=== PATIENT | female | born 1960 | race American Indian/Alaskan Native ===

== ENCOUNTER 2017-04-10 10:46 | Emergency (ER) | payer MEDICAID ==
[2017-04-10] MEDS ORDERED: NACL 0.9% 500 ML 500 ML IV ONE (11:28)
[2017-04-10] MEDS ORDERED: TYLENOL PO ONE (11:29)
[2017-04-10 12:09] LABS: Basophils % (Auto) 0.3 % (0.0-1.8); Hemoglobin 13.5 gm/dl (10.1-14.3); Lymphocytes # (Auto) 0.9 K/mm3 (1.2-5.4); Lymphocytes % (Auto) 12.9 % (13.4-35.0); Mean Corpuscular HGB Conc 33 % (30-34); Mean Corpuscular Hemoglobin 27 pg (28-32); Mean Corpuscular Volume 83 fl (79-97); Monocytes # (Auto) 0.9 K/mm3 (0.0-0.8); Monocytes % (Auto) 13.2 % (0.0-7.3); Platelet Count 182 K/mm3 (140-440); Red Blood Count 4.94 M/mm3 (3.65-5.03); Red Cell Distribution Width 14.4 % (13.2-15.2)
[2017-04-10 12:18] LABS: Alanine Aminotransferase 23 units/L (7-56); BUN/Creatinine Ratio 8; Blood Urea Nitrogen 7 mg/dL (7-17); Calcium 8.7 mg/dL (8.4-10.2); Hemolysis Index 0
[2017-04-10 12:24] LABS: INR 0.98 (0.87-1.13)
--- NOTE | 2017-04-10 13:08 | XRay Report ---
Chest 2 views: Compared to 03/30/16 . History: Possible sepsis. Findings: Borderline cardiomegaly. Trachea is midline. Pleural diaphragmatic adhesions left lung. No acute consolidation. Impression: No acute cardiopulmonary findings.
[2017-04-10] MEDS ORDERED: TORADOL IV ONE (13:22)
[2017-04-10] MEDS ORDERED: NACL 0.9% 1000 ML 1,000 ML IV ONE (13:22)
[2017-04-10] MEDS ORDERED: PROVENTIL IH ONE ×2 (13:22→15:39)
[2017-04-10] MEDS ORDERED: K-DUR PO ONE ×2 (13:23→15:37)
--- NOTE | 2017-04-10 13:24 | Emergency Department Report ---
ED General Adult HPI - General Chief complaint: Chest Pain Stated complaint: CP/SOB Time Seen by Provider: 04/10/17 12:52 Source: patient, RN notes reviewed, old records reviewed Mode of arrival: Ambulatory Limitations: No Limitations - History of Present Illness Initial comments: This is a 56-year-old female, previously evaluated by me in 2016, past medical history includes hypertension, GERD, diabetes, high cholesterol, her primary emergency management director is Dr. Sousa. Patient had a cardiac catheterization performed and September 2014, it demonstrated patent stents noted in the mid left anterior descending arterial segments, and otherwise "mild nonobstructive luminal irregularities noted in the rest of the coronary segments." Patient presents to the ER with a complaint today of coughing, mucus production, shortness of breath, chest tightness with coughing. Her symptoms have been present for 2 days. She only has chest tightness when coughing, and it does not radiate to the back , arms and neck. There is no cocaine use, there are no pulmonary embolus or DVT risk factors. Positive fevers at home. -: Gradual Location: chest Radiation: non-radiation Severity scale (0 -10): 2 Consistency: intermittent Improves with: rest Worsens with: movement, other (coughing) Associated Symptoms: chest pain, cough, fever/chills, malaise, shortness of breath, weakness. denies: loss of appetite, nausea/vomiting, rash, seizure, syncope - Related Data Home Medications Medication Instructions Recorded Confirmed Last Taken Aspirin [Aspirin BABY CHEW TAB] 81 mg PO DAILY 10/02/14 10/02/14 09/30/14 Citalopram Hydrobromide [celeXA] 20 mg PO DAILY 10/02/14 10/02/14 09/18/14 Esomeprazole Magnesium [NexIUM] 40 mg PO QDAY 10/02/14 10/02/14 09/18/14 Hydrochlorothiazide [HCTZ] 25 mg PO QDAY 10/02/14 10/02/14 10/01/14 Insulin Glargine [Lantus VIAL] 5 unit SQ DAILY 10/02/14 10/02/14 09/30/14 Lisinopril [Zestril TAB] 20 mg PO QDAY 10/02/14 10/02/14 10/01/14 Metformin HCl [Glucophage] 1,000 mg PO TID 10/02/14 10/02/14 09/30/14 Metoprolol [Lopressor TAB] 25 mg PO BID 10/02/14 10/02/14 10/01/14 Rosuvastatin Calcium [Crestor] 40 mg PO QHS 10/02/14 10/02/14 10/01/14 Trazodone HCl [traZODone] 50 mg PO DAILY 10/02/14 10/02/14 09/18/14 Previous Rx's Medication Instructions Recorded Last Taken Type Albuterol Sulfate [Proair 90 mcg IH Q4HR PRN #2 aer.pow.ba 03/30/16 Unknown Rx Respiclick] Benzonatate [Tessalon Perles] 100 mg PO Q8HR PRN #30 capsule 03/30/16 Unknown Rx Ketorolac [Toradol] 10 mg PO Q6H PRN #20 tablet 03/30/16 Unknown Rx Acetaminophen [Tylenol Arthritis] 650 mg PO Q6HR PRN #30 tablet.er 04/10/17 Unknown Rx Albuterol Sulfate [Proair 90 mcg IH Q4HR PRN #2 aer.pow.ba 04/10/17 Unknown Rx Respiclick] Azithromycin 250 mg PO QDAY #6 tablet 04/10/17 Unknown Rx Benzonatate [Tessalon Perles] 100 mg PO Q8HR PRN #30 capsule 04/10/17 Unknown Rx Fluticasone [Flonase] 1 spray NS QDAY #1 bottle 04/10/17 Unknown Rx Magnesium Oxide 400 mg PO QDAY #7 tablet 04/10/17 Unknown Rx Potassium Chloride [Klor-Con] 20 meq PO BID #14 packet 04/10/17 Unknown Rx Allergies Allergy/AdvReac Type Severity Reaction Status Date / Time No Known Allergies Allergy Verified 10/02/14 08:13 ED Review of Systems ROS: Stated complaint: CP/SOB Other details as noted in HPI Constitutional: fever, malaise Eyes: denies: vision change ENT: congestion. denies: epistaxis Respiratory: cough, wheezing Cardiovascular: denies: syncope Gastrointestinal: denies: vomiting Genitourinary: denies: dysuria Musculoskeletal: arthralgia Skin: denies: lesions Neurological: weakness ED Past Medical Hx - Past Medical History Previous Medical History?: Yes Hx Hypertension: Yes (2002) Hx Heart Attack/AMI: No Hx Congestive Heart Failure: No Hx Diabetes: Yes (IDDM) Hx GERD: Yes Hx HIV: No - Surgical History Past Surgical History?: Yes Hx Coronary Stent: Yes (x1) Hx Cholecystectomy: Yes (1989) Hx Appendectomy: Yes (1975) - Social History Smoking Status: Never Smoker Substance Use Type: None - Medications Home Medications: Home Medications Medication Instructions Recorded Confirmed Last Taken Type Aspirin [Aspirin BABY CHEW TAB] 81 mg PO DAILY 10/02/14 10/02/14 09/30/14 History Citalopram Hydrobromide [celeXA] 20 mg PO DAILY 10/02/14 10/02/14 09/18/14 History Esomeprazole Magnesium [NexIUM] 40 mg PO QDAY 10/02/14 10/02/14 09/18/14 History Hydrochlorothiazide [HCTZ] 25 mg PO QDAY 10/02/14 10/02/14 10/01/14 History Insulin Glargine [Lantus VIAL] 5 unit SQ DAILY 10/02/14 10/02/14 09/30/14 History Lisinopril [Zestril TAB] 20 mg PO QDAY 10/02/14 10/02/14 10/01/14 History Metformin HCl [Glucophage] 1,000 mg PO TID 10/02/14 10/02/14 09/30/14 History Metoprolol [Lopressor TAB] 25 mg PO BID 10/02/14 10/02/14 10/01/14 History Rosuvastatin Calcium [Crestor] 40 mg PO QHS 10/02/14 10/02/14 10/01/14 History Trazodone HCl [traZODone] 50 mg PO DAILY 10/02/14 10/02/14 09/18/14 History Albuterol Sulfate [Proair 90 mcg IH Q4HR PRN #2 aer.pow.ba 03/30/16 Unknown Rx Respiclick] Benzonatate [Tessalon Perles] 100 mg PO Q8HR PRN #30 capsule 03/30/16 Unknown Rx Ketorolac [Toradol] 10 mg PO Q6H PRN #20 tablet 03/30/16 Unknown Rx Acetaminophen [Tylenol Arthritis] 650 mg PO Q6HR PRN #30 tablet.er 04/10/17 Unknown Rx Albuterol Sulfate [Proair 90 mcg IH Q4HR PRN #2 aer.pow.ba 04/10/17 Unknown Rx Respiclick] Azithromycin 250 mg PO QDAY #6 tablet 04/10/17 Unknown Rx Benzonatate [Tessalon Perles] 100 mg PO Q8HR PRN #30 capsule 04/10/17 Unknown Rx Fluticasone [Flonase] 1 spray NS QDAY #1 bottle 04/10/17 Unknown Rx Magnesium Oxide 400 mg PO QDAY #7 tablet 04/10/17 Unknown Rx Potassium Chloride [Klor-Con] 20 meq PO BID #14 packet 04/10/17 Unknown Rx ED Physical Exam - General Limitations: No Limitations General appearance: alert, in no apparent distress - Head Head exam: Present: atraumatic, normocephalic - Eye Eye exam: Present: normal appearance, EOMI. Absent: nystagmus - ENT ENT exam: Present: normal exam, normal orophraynx, mucous membranes moist, normal external ear exam - Neck Neck exam: Present: normal inspection, full ROM - Respiratory Respiratory exam: Present: normal lung sounds bilaterally. Absent: respiratory distress, wheezes, rales, rhonchi, stridor, chest wall tenderness, accessory muscle use, decreased breath sounds, prolonged expiratory - Cardiovascular Cardiovascular Exam: Present: normal rhythm, tachycardia, normal heart sounds. Absent: systolic murmur, diastolic murmur, rubs, gallop - GI/Abdominal GI/Abdominal exam: Present: soft, normal bowel sounds. Absent: distended, tenderness, guarding, rebound, rigid, pulsatile mass - Extremities Exam Extremities exam: Present: normal inspection, full ROM, normal capillary refill. Absent: pedal edema, joint swelling, calf tenderness - Back Exam Back exam: Present: normal inspection, full ROM. Absent: tenderness, CVA tenderness (R), paraspinal tenderness, vertebral tenderness - Neurological Exam Neurological exam: Present: alert, oriented X3, CN II-XII intact, normal gait, other (Extraocular movements intact. Tongue midline. No facial droop. Facial sensation intact to light touch in the V1, V2, V3 distribution bilaterally. 5 and 5 strength in 4 extremities.. Sensation is intact to light touch in 4 extremities.). Absent: motor sensory deficit - Psychiatric Psychiatric exam: Present: normal affect, normal mood - Skin Skin exam: Present: warm, dry, intact, normal color. Absent: rash ED Course Vital Signs 04/10/17 04/10/17 04/10/17 11:25 13:13 14:49 Temperature 101.4 F H 100.3 F H 99.7 F H Pulse Rate 101 H 100 H 87 Respiratory 20 22 15 Rate Blood Pressure 148/71 Blood Pressure 134/48 142/78 [Left] O2 Sat by Pulse 97 100 93 Oximetry ED Medical Decision Making - Lab Data Result diagrams: 04/10/17 11:38 04/10/17 11:38 Vital Signs 04/10/17 04/10/17 04/10/17 11:25 13:13 14:49 Temperature 101.4 F H 100.3 F H 99.7 F H Pulse Rate 101 H 100 H 87 Respiratory 20 22 15 Rate Blood Pressure 148/71 Blood Pressure 134/48 142/78 [Left] O2 Sat by Pulse 97 100 93 Oximetry Lab Results 04/10/17 04/10/17 04/10/17 Range/Units 11:38 11:38 11:38 WBC 6.8 (4.5-11.0) K/mm3 RBC 4.94 (3.65-5.03) M/mm3 Hgb 13.5 (10.1-14.3) gm/dl Hct 41.0 (30.3-42.9) % MCV 83 (79-97) fl MCH 27 L (28-32) pg MCHC 33 (30-34) % RDW 14.4 (13.2-15.2) % Plt Count 182 (140-440) K/mm3 Lymph % (Auto) 12.9 L (13.4-35.0) % [place] % (Auto) 13.2 H (0.0-7.3) % Eos % (Auto) 0.0 (0.0-4.3) % Baso % (Auto) 0.3 (0.0-1.8) % Lymph # 0.9 L (1.2-5.4) K/mm3 [place] # 0.9 H (0.0-0.8) K/mm3 Eos # 0.0 (0.0-0.4) K/mm3 Baso # 0.0 (0.0-0.1) K/mm3 Seg Neutrophils % 73.6 H (40.0-70.0) % Seg Neutrophils # 5.0 (1.8-7.7) K/mm3 PT 13.5 (12.2-14.9) Sec. INR 0.98 (0.87-1.13) VBG pH (7.320-7.420) Sodium 140 (137-145) mmol/L Potassium 3.1 L (3.6-5.0) mmol/L Chloride 93.7 L (98-107) mmol/L Carbon Dioxide 28 (22-30) mmol/L Anion Gap 21 mmol/L BUN 7 (7-17) mg/dL Creatinine 0.9 (0.7-1.2) mg/dL Estimated GFR > 60 ml/min BUN/Creatinine Ratio 8 % Glucose 234 H (65-100) mg/dL Lactic Acid (0.7-2.0) mmol/L Calcium 8.7 (8.4-10.2) mg/dL Magnesium (1.7-2.3) mg/dL Total Bilirubin 0.40 (0.1-1.2) mg/dL AST 21 (5-40) units/L ALT 23 (7-56) units/L Alkaline Phosphatase 132 H (35-129) units/L Troponin T (0.00-0.029) ng/mL Total Protein 7.6 (6.3-8.2) g/dL Albumin 4.0 (3.9-5) g/dL Albumin/Globulin Ratio 1.1 % 04/10/17 04/10/17 04/10/17 Range/Units 11:38 11:38 11:44 WBC (4.5-11.0) K/mm3 RBC (3.65-5.03) M/mm3 Hgb (10.1-14.3) gm/dl Hct (30.3-42.9) % MCV (79-97) fl MCH (28-32) pg MCHC (30-34) % RDW (13.2-15.2) % Plt Count (140-440) K/mm3 Lymph % (Auto) (13.4-35.0) % [place] % (Auto) (0.0-7.3) % Eos % (Auto) (0.0-4.3) % Baso % (Auto) (0.0-1.8) % Lymph # (1.2-5.4) K/mm3 [place] # (0.0-0.8) K/mm3 Eos # (0.0-0.4) K/mm3 Baso # (0.0-0.1) K/mm3 Seg Neutrophils % (40.0-70.0) % Seg Neutrophils # (1.8-7.7) K/mm3 PT (12.2-14.9) Sec. INR (0.87-1.13) VBG pH 7.383 (7.320-7.420) Sodium (137-145) mmol/L Potassium (3.6-5.0) mmol/L Chloride (98-107) mmol/L Carbon Dioxide (22-30) mmol/L Anion Gap mmol/L BUN (7-17) mg/dL Creatinine (0.7-1.2) mg/dL Estimated GFR ml/min BUN/Creatinine Ratio % Glucose (65-100) mg/dL Lactic Acid 4.10 H* (0.7-2.0) mmol/L Calcium (8.4-10.2) mg/dL Magnesium (1.7-2.3) mg/dL Total Bilirubin (0.1-1.2) mg/dL AST (5-40) units/L ALT (7-56) units/L Alkaline Phosphatase (35-129) units/L Troponin T < 0.010 (0.00-0.029) ng/mL Total Protein (6.3-8.2) g/dL Albumin (3.9-5) g/dL Albumin/Globulin Ratio % 04/10/17 04/10/17 04/10/17 Range/Units 13:36 13:36 13:36 WBC (4.5-11.0) K/mm3 RBC (3.65-5.03) M/mm3 Hgb (10.1-14.3) gm/dl Hct (30.3-42.9) % MCV (79-97) fl MCH (28-32) pg MCHC (30-34) % RDW (13.2-15.2) % Plt Count (140-440) K/mm3 Lymph % (Auto) (13.4-35.0) % [place] % (Auto) (0.0-7.3) % Eos % (Auto) (0.0-4.3) % Baso % (Auto) (0.0-1.8) % Lymph # (1.2-5.4) K/mm3 [place] # (0.0-0.8) K/mm3 Eos # (0.0-0.4) K/mm3 Baso # (0.0-0.1) K/mm3 Seg Neutrophils % (40.0-70.0) % Seg Neutrophils # (1.8-7.7) K/mm3 PT (12.2-14.9) Sec. INR (0.87-1.13) VBG pH (7.320-7.420) Sodium (137-145) mmol/L Potassium (3.6-5.0) mmol/L Chloride (98-107) mmol/L Carbon Dioxide (22-30) mmol/L Anion Gap mmol/L BUN (7-17) mg/dL Creatinine (0.7-1.2) mg/dL Estimated GFR ml/min BUN/Creatinine Ratio % Glucose (65-100) mg/dL Lactic Acid 2.00 (0.7-2.0) mmol/L Calcium (8.4-10.2) mg/dL Magnesium 1.50 L (1.7-2.3) mg/dL Total Bilirubin (0.1-1.2) mg/dL AST (5-40) units/L ALT (7-56) units/L Alkaline Phosphatase (35-129) units/L Troponin T < 0.010 (0.00-0.029) ng/mL Total Protein (6.3-8.2) g/dL Albumin (3.9-5) g/dL Albumin/Globulin Ratio % - EKG Data -: EKG Interpreted by Sc - EKG Data 04/10/17 15:10 EKG #1 demonstrates sinus tachycardia, borderline left axis deviation, QTC within normal limits, motion, more likely consistent with STEMI. Unchanged from prior from March 2016. EKG #2 appears to be unchanged. - Radiology Data Radiology results: report reviewed, image reviewed X-ray of the chest, interpreted by myself and radiology: No acute disease or pathology - Medical Decision Making Differential diagnosis, including but not limited to: Myocarditis, pericarditis , pneumonia, bronchitis, viral syndrome Assessment and plan: 56-year-old female with cough, mucus production, fever, chest wall pain with coughing, febrile in the ER, most likely viral syndrome or bronchitis. Initially febrile, given antipyretic medication, fluids, albuterol , felt much improved. Doubt acute coronary syndrome, troponin negative 2, EKG unchanged 2, catheterization report from 2014 is reviewed and appreciated, patient at this point in time low risk by IPNO score, low risk by heart score. Low risk by well's criteria, does not have pulmonary embolus or DVT risk factors. In addition, I evaluated the patient for a very similar complaint at the end of 2016. Incidentally found to be hypokalemic and hypomagnesemic, patient will be discharged with albuterol, cough medication, potassium supplementation, magnesium supplementation, she'll be treated empirically for early community-acquired pneumonia versus bronchitis. Not wheezing at this time , I don't feel the patient requires steroids. Critical care attestation.: If time is entered above; I have spent that time in minutes in the direct care of this critically ill patient, excluding procedure time. ED Disposition Clinical Impression: Bronchitis Disposition: [id number] TO HOME OR SELFCARE Is pt being admited?: No Does the pt Need Aspirin: No Condition: Stable Instructions: Acute Bronchitis (ED) Additional Instructions: Take the cough medication, breathing medication, antibiotics as directed. Take the potassium and magnesium supplementation as directed. Symptoms likely, from bronchitis, symptoms will likely last for the next few weeks. Return to the ER right away with new pain, worsened pain, migration of pain, confusion, intractable nausea or vomiting, inability to tolerate liquid feeds, projectile vomiting, change in mental status, new, worsening or different symptoms. Follow-up with her primary care doctor within the next 5-7 days for a recheck. Prescriptions: Acetaminophen [Tylenol Arthritis] 650 mg PO Q6HR PRN #30 tablet.er PRN Reason: Pain Albuterol Sulfate [Proair Respiclick] 90 mcg IH Q4HR PRN #2 aer.pow.ba PRN Reason: Wheezing Azithromycin 250 mg PO QDAY #6 tablet Benzonatate [Tessalon Perles] 100 mg PO Q8HR PRN #30 capsule PRN Reason: Cough Fluticasone [Flonase] 1 spray NS QDAY #1 bottle Magnesium Oxide 400 mg PO QDAY #7 tablet Potassium Chloride [Klor-Con] 20 meq PO BID #14 packet Referrals: PRIMARY CARE, [Primary Care Provider] - 3-5 Days BELEN ULLOA MD [Staff Physician] - 3-5 Days SASHA VERGARA MD [Staff Physician] - 3-5 Days
[2017-04-10] MEDS ORDERED: MAG-OX PO STA (13:30)
[2017-04-10] MEDS ORDERED: TORADOL ONE (15:37)
[2017-04-10] MEDS: KCL 10MEQ/100ML 10 MEQ/100 ML BAG IV SCH ×2 (16:05→19:04)
[2017-04-10] MEDS ORDERED: NACL 0.9% 1000 ML 1,000 ML ONE (17:08)
[2017-04-10 19:43] VITALS: BP 146/70
== END 2017-04-10 19:45 | disposition home or self-care (01) ==
LOC: ED 10:46
DX: J40 Bronchitis, not specified as acute or chronic (principal); I10 Essential (primary) hypertension; K21.9 Gastro-esophageal reflux disease without esophagitis
CPT/HCPCS: 36415; 71046; 80053; 82140; 82805; 83735; 84484; 85025; 85610; 93005; 93010; 94640; 96361; 96374; 99284; J1885; J3480; J7030

== ENCOUNTER 2017-12-25 06:23 | Inpatient (IN) | payer MEDICAID ==
[2017-12-25 07:28] LABS: Basophils % (Auto) 0.4 % (0.0-1.8); Eosinophils # (Auto) 0.2 K/mm3 (0.0-0.4); Eosinophils % (Auto) 3.4 % (0.0-4.3); Hematocrit 40.1 % (30.3-42.9); Hemoglobin 13.3 gm/dl (10.1-14.3); Lymphocytes # (Auto) 1.8 K/mm3 (1.2-5.4); Lymphocytes % (Auto) 37.2 % (13.4-35.0); Mean Corpuscular HGB Conc 33 % (30-34); Mean Corpuscular Hemoglobin 28 pg (28-32); Mean Corpuscular Volume 84 fl (79-97); Monocytes # (Auto) 0.5 K/mm3 (0.0-0.8); Monocytes % (Auto) 9.4 % (0.0-7.3); Platelet Count 247 K/mm3 (140-440); Red Blood Count 4.75 M/mm3 (3.65-5.03)
[2017-12-25 07:48] LABS: BUN/Creatinine Ratio 14; Blood Urea Nitrogen 11 mg/dL (7-17); Hemolysis Index 6
--- NOTE | 2017-12-25 07:49 | Emergency Department Report ---
- General Chief complaint: Weakness Stated complaint: WEAKNESS Time Seen by Provider: 12/25/17 07:49 Source: patient Mode of arrival: Ambulatory Limitations: No Limitations - History of Present Illness Initial comments: Patient complaining of generalized body weakness and chest pain radiated into her left upper extremity. She said her last stress test was more than 8 months ago. She also has a stent placed in the past. Patient denies any abdominal pain, shortness of breath, nausea or vomiting. Patient also complains of unsteady gait was started recently. However she denies any history of syncope or falling. MD Complaint: generalized weakness -: Gradual Location: generalized Severity scale (0 -10): 0 Improves with: none Worsens with: none Associated Symptoms: denies other symptoms - Related Data Home Medications Medication Instructions Recorded Confirmed Last Taken Aspirin [Aspirin BABY CHEW TAB] 81 mg PO DAILY 10/02/14 10/02/14 09/30/14 Citalopram Hydrobromide [celeXA] 20 mg PO DAILY 10/02/14 10/02/14 09/18/14 Esomeprazole Magnesium [NexIUM] 40 mg PO QDAY 10/02/14 10/02/14 09/18/14 Insulin Glargine [Lantus VIAL] 5 unit SQ DAILY 10/02/14 10/02/14 09/30/14 Lisinopril [Zestril TAB] 20 mg PO QDAY 10/02/14 10/02/14 10/01/14 Metformin HCl [Glucophage] 1,000 mg PO TID 10/02/14 10/02/14 09/30/14 Metoprolol [Lopressor TAB] 25 mg PO BID 10/02/14 10/02/14 10/01/14 Rosuvastatin Calcium [Crestor] 40 mg PO QHS 10/02/14 10/02/14 10/01/14 Trazodone HCl [traZODone] 50 mg PO DAILY 10/02/14 10/02/14 09/18/14 hydroCHLOROthiazide [HCTZ] 25 mg PO QDAY 10/02/14 10/02/14 10/01/14 Previous Rx's Medication Instructions Recorded Last Taken Type Albuterol Sulfate [Proair 90 mcg IH Q4HR PRN #2 aer.pow.ba 03/30/16 Unknown Rx Respiclick] Benzonatate [Tessalon Perles] 100 mg PO Q8HR PRN #30 capsule 03/30/16 Unknown Rx Ketorolac [Toradol] 10 mg PO Q6H PRN #20 tablet 03/30/16 Unknown Rx Acetaminophen [Tylenol Arthritis] 650 mg PO Q6HR PRN #30 tablet.er 04/10/17 Unknown Rx Albuterol Sulfate [Proair 90 mcg IH Q4HR PRN #2 aer.pow.ba 04/10/17 Unknown Rx Respiclick] Azithromycin 250 mg PO QDAY #6 tablet 04/10/17 Unknown Rx Benzonatate [Tessalon Perles] 100 mg PO Q8HR PRN #30 capsule 04/10/17 Unknown Rx Fluticasone [Flonase] 1 spray NS QDAY #1 bottle 04/10/17 Unknown Rx Magnesium Oxide 400 mg PO QDAY #7 tablet 04/10/17 Unknown Rx Potassium Chloride [Klor-Con] 20 meq PO BID #14 packet 04/10/17 Unknown Rx Allergies Allergy/AdvReac Type Severity Reaction Status Date / Time No Known Allergies Allergy Verified 10/02/14 08:13 ED Review of Systems ROS: Stated complaint: WEAKNESS Other details as noted in HPI Comment: All other systems reviewed and negative Constitutional: denies: chills, fever Eyes: denies: eye pain ENT: denies: ear pain Respiratory: denies: cough, shortness of breath Cardiovascular: chest pain. denies: palpitations, dyspnea on exertion Endocrine: no symptoms reported Gastrointestinal: denies: abdominal pain, nausea, vomiting, diarrhea, constipation Genitourinary: denies: urgency, dysuria Musculoskeletal: denies: back pain Skin: denies: rash, lesions, change in color Neurological: weakness, abnormal gait. denies: headache, numbness, paresthesias Psychiatric: denies: anxiety, depression Hematological/Lymphatic: denies: easy bleeding, easy bruising ED Past Medical Hx - Past Medical History Previous Medical History?: Yes Hx Hypertension: Yes (2002) Hx Heart Attack/AMI: No Hx Congestive Heart Failure: No Hx Diabetes: Yes (IDDM) Hx GERD: Yes Hx HIV: No - Surgical History Hx Coronary Stent: Yes (x1) Hx Cholecystectomy: Yes (1989) Hx Appendectomy: Yes (1975) - Social History Smoking Status: Never Smoker Substance Use Type: None - Medications Home Medications: Home Medications Medication Instructions Recorded Confirmed Last Taken Type Aspirin [Aspirin BABY CHEW TAB] 81 mg PO DAILY 10/02/14 10/02/14 09/30/14 History Citalopram Hydrobromide [celeXA] 20 mg PO DAILY 10/02/14 10/02/14 09/18/14 History Esomeprazole Magnesium [NexIUM] 40 mg PO QDAY 10/02/14 10/02/14 09/18/14 History Insulin Glargine [Lantus VIAL] 5 unit SQ DAILY 10/02/14 10/02/14 09/30/14 History Lisinopril [Zestril TAB] 20 mg PO QDAY 10/02/14 10/02/14 10/01/14 History Metformin HCl [Glucophage] 1,000 mg PO TID 10/02/14 10/02/14 09/30/14 History Metoprolol [Lopressor TAB] 25 mg PO BID 10/02/14 10/02/14 10/01/14 History Rosuvastatin Calcium [Crestor] 40 mg PO QHS 10/02/14 10/02/14 10/01/14 History Trazodone HCl [traZODone] 50 mg PO DAILY 10/02/14 10/02/14 09/18/14 History hydroCHLOROthiazide [HCTZ] 25 mg PO QDAY 10/02/14 10/02/14 10/01/14 History Albuterol Sulfate [Proair 90 mcg IH Q4HR PRN #2 aer.pow.ba 03/30/16 Unknown Rx Respiclick] Benzonatate [Tessalon Perles] 100 mg PO Q8HR PRN #30 capsule 03/30/16 Unknown Rx Ketorolac [Toradol] 10 mg PO Q6H PRN #20 tablet 03/30/16 Unknown Rx Acetaminophen [Tylenol Arthritis] 650 mg PO Q6HR PRN #30 tablet.er 04/10/17 Unknown Rx Albuterol Sulfate [Proair 90 mcg IH Q4HR PRN #2 aer.pow.ba 04/10/17 Unknown Rx Respiclick] Azithromycin 250 mg PO QDAY #6 tablet 04/10/17 Unknown Rx Benzonatate [Tessalon Perles] 100 mg PO Q8HR PRN #30 capsule 04/10/17 Unknown Rx Fluticasone [Flonase] 1 spray NS QDAY #1 bottle 04/10/17 Unknown Rx Magnesium Oxide 400 mg PO QDAY #7 tablet 04/10/17 Unknown Rx Potassium Chloride [Klor-Con] 20 meq PO BID #14 packet 04/10/17 Unknown Rx ED Physical Exam - General Limitations: No Limitations General appearance: alert, in no apparent distress - Head Head exam: Present: atraumatic, normocephalic, normal inspection - Eye Eye exam: Present: normal appearance, PERRL, EOMI Pupils: Present: normal accommodation - ENT ENT exam: Present: normal exam, normal orophraynx, mucous membranes moist - Neck Neck exam: Present: normal inspection, full ROM. Absent: tenderness - Respiratory Respiratory exam: Present: normal lung sounds bilaterally. Absent: respiratory distress, wheezes, rales, rhonchi, stridor - Cardiovascular Cardiovascular Exam: Present: regular rate, normal rhythm, normal heart sounds - GI/Abdominal GI/Abdominal exam: Present: soft, normal bowel sounds. Absent: distended, tenderness, guarding, rebound, rigid - Extremities Exam Extremities exam: Present: normal inspection, full ROM, normal capillary refill. Absent: tenderness, pedal edema, joint swelling - Back Exam Back exam: Present: normal inspection, full ROM. Absent: tenderness - Neurological Exam Neurological exam: Present: alert, oriented X3, CN II-XII intact, abnormal gait , reflexes normal. Absent: motor sensory deficit - Psychiatric Psychiatric exam: Present: normal affect, normal mood - Skin Skin exam: Present: warm, dry, intact, normal color. Absent: rash - Assessment Assessment Interval: Baseline - Level of Consciousness 1a. Level of Consciousness: alert/keenly responsive - LOC Questions 1b. LOC Questions: answers both correctly - LOC Command 1c. LOC Commands: performs tasks correctly - Best Gaze 2. Best Gaze: normal - Visual 3. Visual: no visual loss - Facial Palsy 4. Facial Palsy: normal symmetrical movement - Motor Arm 5b. Motor Arm Right: no drift 5a. Motor Arm Left: no drift - Motor Leg 6a. Motor Leg Left: no drift 6b. Motor Leg Right: no drift - Limb Ataxia 7. Limb Ataxia: absent - Sensory 8. Sensory: normal - Best Language 9. Best Language: no aphasia - Dysarthria 10. Dysarthria: normal - Extinction and Inattention 11. Extinction/Inattention: no abnormality - Scoring Total Score: 0 Stroke Severity: No Stroke Symptoms ED Course Vital Signs 12/25/17 12/25/17 12/25/17 06:38 07:40 07:45 Temperature 97.7 F Pulse Rate 60 69 59 L Respiratory 20 21 12 Rate Blood Pressure 138/79 149/58 O2 Sat by Pulse 100 100 Oximetry 12/25/17 12/25/17 12/25/17 08:01 08:41 09:01 Temperature Pulse Rate 54 L 50 L Respiratory 14 13 Rate Blood Pressure 128/50 149/58 135/85 O2 Sat by Pulse 98 100 100 Oximetry 12/25/17 12/25/17 12/25/17 09:31 10:01 10:31 Temperature Pulse Rate Respiratory 11 L 13 15 Rate Blood Pressure 137/65 137/65 137/65 O2 Sat by Pulse 100 100 99 Oximetry - Reevaluation(s) Reevaluation #1: 12/25/17 12:44 I consulted the intranet support oil well directional surveyor Dr. Wan. He will evaluate the patient later during this admission. Patient will be admitted to the hospitalist by Dr. Hardin for further evaluation and management. ED Medical Decision Making - Lab Data Result diagrams: 12/25/17 06:56 12/25/17 06:56 - EKG Data -: EKG Interpreted by Me EKG shows normal: sinus rhythm Rate: bradycardia (57) - EKG Data When compared to previous EKG there are: previous EKG unavailable Interpretation: nonspecific ST-T wave anthony 12/25/17 09:09 Low Voltage, No STEMI. - Radiology Data Radiology results: report reviewed, image reviewed - Medical Decision Making Unsteady gait. Chest Pain. Generalized Weakness. Critical Care Time: Yes Critical care time in (mins) excluding proc time.: 35 Critical care attestation.: If time is entered above; I have spent that time in minutes in the direct care of this critically ill patient, excluding procedure time. ED Disposition Clinical Impression: Generalized weakness, Unsteady gait, History of coronary artery disease Chest pain Qualifiers: Chest pain type: unspecified Qualified Code(s): R07.9 - Chest pain, unspecified Disposition: OP ADMIT IP TO THIS HOSP Is pt being admited?: Yes Does the pt Need Aspirin: Yes Condition: Stable Instructions: Chest Pain (ED) Referrals: PRIMARY CARE, [Primary Care Provider] - 3-5 Days Time of Disposition: 12:45
[2017-12-25] MEDS ORDERED: ASPIRIN PO ONE (08:12)
[2017-12-25 08:40] LABS: Bacteria,Urine 1+ /HPF (Negative); Bilirubin,Urine NEG (Negative); Blood,Urine NEG (Negative); Color,Urine Yellow (Yellow); Mucus,Urine FEW /HPF; Protein,Urine <15 mg/dL mg/dL (Negative)
--- NOTE | 2017-12-25 08:53 | Cat Scan Report ---
CT HEAD WITHOUT CONTRAST: HISTORY: Unsteady gait. TECHNIQUE: Sequential 2.5mm CT images. COMPARISON: none. FINDINGS: Cerebral Parenchyma: Within normal limits. Cerebellum: Within normal limits. Brainstem: Within normal limits. Ventricles: Normal. Sella: Normal. Extra-axial spaces: Normal. Basal Cisterns: Normal. Intracranial Hemorrhage: None. Midline Shift: None. Calvarium: Normal. Sinuses: Normal. Mastoid Air Cells: Normal. Visualized Orbits: Normal. IMPRESSION: Cranial CT scan within normal limits.
[2017-12-25 09:07] LABS: Alanine Aminotransferase 13 units/L (7-56); Albumin 3.9 g/dL (3.9-5); Bilirubin,Direct < 0.2 mg/dL (0-0.2)
[2017-12-25 09:12] LABS: INR 0.91 (0.87-1.13)
[2017-12-25 09:13] LABS: Partial Thromboplastin Time 35.5 Sec. (24.2-36.6)
--- NOTE | 2017-12-25 09:40 | XRay Report ---
PORTABLE CHEST: Chest pain. An AP portable view of the chest demonstrates a normal cardiac contour considering the limits of this technique. The lungs are clear with no evidence of infiltrate, fluid or failure. Compared to April 10, 2017 is been resolution of left basilar atelectasis. IMPRESSION: Normal portable chest.
--- NOTE | 2017-12-25 12:42 | History and Physical Report ---
History of Present Illness Chief complaint: I feel weak, and my chest hurts History of present illness: 57 YO Female with HTN, DM, GERD, Obesity, CAD S/P Stent placement presents to ED for evaluation. Pt states that she has experienced generalized weakness over the past 1 week, with persistent symptoms over the same time frame. Pt also states that she has experienced pain in her chest over the past 1 day. Pt states that pain is substernal, 5/10, nonradiating, not worsened with exertion, or relieved with rest. Pt denies fever, chills, palpitations, productive cough, unintentional weight loss, night sweats, unilateral leg swelling, calf pain, or recent ill contacts. Pt seen and evaluated in ED and found to have ACS, as well symptoms consistent with Diastolic CHF. Pt admitted to telemetry. Cardiology consulted in ED. Past History Past Medical History: CAD, diabetes, GERD, hypertension Past Surgical History: appendectomy, cholecystectomy, Other (cardiac stent) Social history: , lives with family. denies: smoking, alcohol abuse, prescription drug abuse Family history: diabetes, hypertension Medications and Allergies Allergies Allergy/AdvReac Type Severity Reaction Status Date / Time No Known Allergies Allergy Verified 10/02/14 08:13 Home Medications Medication Instructions Recorded Confirmed Last Taken Type Aspirin [Aspirin BABY CHEW TAB] 81 mg PO DAILY 10/02/14 12/25/17 09/30/14 History Esomeprazole Magnesium [NexIUM] 40 mg PO QDAY 10/02/14 12/25/17 09/18/14 History Insulin Glargine [Lantus VIAL] 5 unit SQ DAILY 10/02/14 12/25/17 09/30/14 History Lisinopril [Zestril TAB] 20 mg PO QDAY 10/02/14 12/25/17 10/01/14 History Metformin HCl [Glucophage] 1,000 mg PO BID 10/02/14 12/25/17 09/30/14 History Metoprolol [Lopressor TAB] 25 mg PO BID 10/02/14 12/25/17 10/01/14 History hydroCHLOROthiazide [HCTZ] 25 mg PO QDAY 10/02/14 12/25/17 10/01/14 History Acetaminophen [Tylenol Arthritis] 650 mg PO Q6HR PRN #30 tablet.er 04/10/17 Unknown Rx Albuterol Sulfate [Proair 90 mcg IH Q4HR PRN #2 aer.pow.ba 04/10/17 12/25/17 Unknown Rx Respiclick] AtorvaSTATin [Lipitor] 20 mg PO QHS 12/25/17 12/25/17 Unknown History Review of Systems Constitutional: weakness, no weight loss, no weight gain, no fever, no chills Ears, nose, mouth and throat: no ear pain, no ear discharge, no tinnitis, no decreased hearing, no nose pain, no nasal congestion Breasts: no change in shape, no swelling, no mass Cardiovascular: chest pain, no orthopnea, no palpitations, no rapid/irregular heart beat, no edema, no syncope Respiratory: no cough, no cough with sputum, no excessive sputum, no hemoptysis Gastrointestinal: no nausea, no vomiting, no diarrhea, no constipation, no change in bowel habits Genitourinary Female: no pelvic pain, no flank pain, no menorrhagia, no dysuria , no urinary frequency, no urgency Rectal: no pain, no incontinence, no bleeding Integumentary: no rash, no pruritis, no redness, no sores, no wounds Neurological: no paralysis, no weakness, no parathesias, no numbness, no tingling, no seizures Psychiatric: no anxiety, no memory loss, no change in sleep habits, no sleep disturbances, no insomnia, no hypersomnia, no change in appetite Endocrine: no cold intolerance, no heat intolerance, no polyphagia, no excessive thirst, no polydipsia, no polyuria Hematologic/Lymphatic: no easy bruising, no easy bleeding, no lymphadenopathy, no lymphedema Allergic/Immunologic: no urticaria, no allergic rhinitis, no wheezing, no persistent infections, no anaphylaxis Exam - Constitutional Vitals: Temp Pulse Resp BP Pulse Ox 97.7 F 50 L 15 137/65 99 12/25/17 06:38 12/25/17 09:01 12/25/17 10:31 12/25/17 10:31 12/25/17 10:31 General appearance: Present: no acute distress, well-nourished - EENT Eyes: Present: PERRL ENT: hearing intact, clear oral mucosa - Neck Neck: Present: supple, normal ROM - Respiratory Respiratory effort: normal Respiratory: bilateral: CTA - Cardiovascular Heart Sounds: Present: S1 & S2. Absent: rub, click - Extremities Extremities: pulses symmetrical, No edema Peripheral Pulses: within normal limits - Abdominal General gastrointestinal: Present: soft, non-tender, non-distended, normal bowel sounds Female genitourinary: Present: normal - Integumentary Integumentary: Present: clear, warm, dry - Musculoskeletal Musculoskeletal: gait normal, strength equal bilaterally - Psychiatric Psychiatric: appropriate mood/affect, intact judgment & insight - Neurologic Neurologic: CNII-XII intact, moves all extremities Results - Labs CBC & Chem 7: 12/25/17 06:56 18 06:56 Labs: Abnormal lab results 12/25/17 12/25/17 12/25/17 Range/Units 06:56 06:56 06:56 Lymph % (Auto) 37.2 H (13.4-35.0) % [place] % (Auto) 9.4 H (0.0-7.3) % Glucose 168 H (65-100) mg/dL Alkaline Phosphatase 163 H (35-129) units/L Assessment and Plan - Patient Problems (1) CHF (congestive heart failure) Current Visit: Yes Status: Acute Qualifiers: Heart failure type: diastolic Heart failure chronicity: acute Qualified Code(s): I50.31 - Acute diastolic (congestive) heart failure Plan to address problem: Admit to telemetry, cardiology consulted in ED, strict I/O, monitor uop q shift , echo, BNP, chest x ray, Ddimer, CTA chest (2) ACS (acute coronary syndrome) Current Visit: Yes Status: Acute Plan to address problem: Serial cardiac enzymes, ekg, telemetry, morphine, supplemental oxygen, nitro, aspirin, cardiology consulted in ED. (3) Diabetes Current Visit: Yes Status: Acute Plan to address problem: ADA diet, insulin, accu check (4) GERD (gastroesophageal reflux disease) Current Visit: Yes Status: Acute Qualifiers: Esophagitis presence: without esophagitis Qualified Code(s): K21.9 - Gastro -esophageal reflux disease without esophagitis Plan to address problem: PPI therapy, (5) DVT prophylaxis Current Visit: Yes Status: Acute Plan to address problem: SCD to BLE while in bed.
[2017-12-25] MEDS ORDERED: BABY ASPIRIN PO STA (13:02)
[2017-12-25] MEDS ORDERED: PROVENTIL IH PRN (13:02)
[2017-12-25] MEDS ORDERED: NITROSTAT SL PRN (13:02)
[2017-12-25] MEDS ORDERED: TYLENOL PO PRN ×2 (13:02→13:13)
[2017-12-25] MEDS ORDERED: SODIUM CHLORIDE FLUSH SYRINGE 10 ML IV PRN ×2 (13:02)
[2017-12-25] MEDS ORDERED: ZOFRAN IV PRN (13:02)
[2017-12-25] MEDS ORDERED: TESSALON PERLES PO PRN (13:04)
[2017-12-25] MEDS ORDERED: TORADOL PO PRN (13:04)
[2017-12-25] MEDS ORDERED: NON-FORMULARY (Acetaminophen [Tylenol Arthritis] 650 MG) PO PRN (13:04)
[2017-12-25 13:49] LABS: Free T4 (Free Thyroxine) 1.1 ng/dL (0.76-1.46)
--- NOTE | 2017-12-25 15:59 | Magnetic Resonance Report ---
FINAL REPORT PROCEDURE: MR BRAIN WO CON TECHNIQUE: Magnetic resonance imaging of the brain was performed without contrast material. HISTORY: unsteady gait COMPARISON: No prior studies are available for comparison. FINDINGS: There is no evidence of intracranial hemorrhage. No parenchymal hemorrhage, mass lesions or mass effect are seen. The ventricles sulcal pattern and fissures are mildly prominent consistent with mild atrophy. No abnormal extra-axial fluid collections or masses are identified. No abnormal areas of restricted diffusion are seen that would suggest an acute ischemic event. The corpus callosum, region of the pituitary fossa and foramen magnum are unremarkable. Paranasal sinuses and mastoid air cells are clear. IMPRESSION: There is evidence of mild atrophy and gliosis. No other abnormalities are seen.
[2017-12-25] MEDS: MORPHINE IV PRN ×2 (16:00→21:11)
--- NOTE | 2017-12-25 16:57 | Consultation ---
History of Present Illness Consult date: 12/25/17 History of present illness: 57 year old female presenting with unsteady gait, malaise and chills. She also describes chest tightness. ECG is showing no ischemic changes. Troponin is negative x 3. CXR is showing NAP. CT brain NAP. Past History Past Medical History: CAD, diabetes, GERD, hypertension Past Surgical History: appendectomy, cholecystectomy, Other (cardiac stent) Social history: , lives with family. denies: smoking, alcohol abuse, prescription drug abuse Family history: diabetes, hypertension Medications and Allergies Allergies Allergy/AdvReac Type Severity Reaction Status Date / Time No Known Allergies Allergy Verified 10/02/14 08:13 Home Medications Medication Instructions Recorded Confirmed Last Taken Type Aspirin [Aspirin BABY CHEW TAB] 81 mg PO DAILY 10/02/14 12/25/17 09/30/14 History Esomeprazole Magnesium [NexIUM] 40 mg PO QDAY 10/02/14 12/25/17 09/18/14 History Insulin Glargine [Lantus VIAL] 5 unit SQ DAILY 10/02/14 12/25/17 09/30/14 History Lisinopril [Zestril TAB] 20 mg PO QDAY 10/02/14 12/25/17 10/01/14 History Metformin HCl [Glucophage] 1,000 mg PO BID 10/02/14 12/25/17 09/30/14 History Metoprolol [Lopressor TAB] 25 mg PO BID 10/02/14 12/25/17 10/01/14 History hydroCHLOROthiazide [HCTZ] 25 mg PO QDAY 10/02/14 12/25/17 10/01/14 History Acetaminophen [Tylenol Arthritis] 650 mg PO Q6HR PRN #30 tablet.er 04/10/17 Unknown Rx Albuterol Sulfate [Proair 90 mcg IH Q4HR PRN #2 aer.pow.ba 04/10/17 12/25/17 Unknown Rx Respiclick] AtorvaSTATin [Lipitor] 20 mg PO QHS 12/25/17 12/25/17 Unknown History Active Meds: Active Medications Acetaminophen (Tylenol) 650 mg PO Q4H PRN PRN Reason: Pain MILD(1-3)/Fever >100.5/WOOTEN Acetaminophen (Tylenol) 650 mg PO Q6H PRN PRN Reason: Pain, Mild (1-3) Albuterol (Proventil) 2.5 mg IH Q4HRT PRN PRN Reason: Shortness Of Breath Atorvastatin Calcium (Lipitor) 40 mg PO QHS CARIN Benzonatate (Tessalon Perles) 100 mg PO Q8HR PRN PRN Reason: Cough Citalopram Hydrobromide (Celexa) 20 mg PO DAILY [facility] Fluticasone Propionate (Flonase) 50 mcg NS QDAY [facility] Hydrochlorothiazide (Hctz) 25 mg PO QDAY [facility] Insulin Glargine (Lantus) 5 units SUB-Q DAILY [facility] Ketorolac Tromethamine (Toradol) 10 mg PO Q6H PRN PRN Reason: Pain Stop: 12/30/17 13:03 Lisinopril (Zestril) 20 mg PO QDAY [facility] Metoprolol Tartrate (Lopressor) 25 mg PO BID [facility] Morphine Sulfate (Morphine) 2 mg IV Q4H PRN PRN Reason: Pain, Moderate (4-6) Last Admin: 12/25/17 16:00 Dose: 2 mg Nitroglycerin (Nitrostat) 0.4 mg SL Q5M PRN PRN Reason: Chest Pain Ondansetron HCl (Zofran) 4 mg IV Q8H PRN PRN Reason: Nausea And Vomiting Pantoprazole Sodium (Protonix) 40 mg PO DAILY [facility] Pneumococcal Polyvalent Vaccine (Pneumovax 23) 0.5 ml IM .ONCE ONE Stop: 12/26/17 12:01 Sodium Chloride (Sodium Chloride Flush Syringe 10 Ml) 10 ml IV BID [facility] Sodium Chloride (Sodium Chloride Flush Syringe 10 Ml) 10 ml IV PRN PRN PRN Reason: LINE FLUSH Sodium Chloride (Sodium Chloride Flush Syringe 10 Ml) 10 ml IV PRN PRN PRN Reason: LINE FLUSH Trazodone HCl (Desyrel) 50 mg PO DAILY [facility] Review of Systems All systems: negative Physical Examination Vital Signs Temp Pulse Resp BP Pulse Ox 97.7 F 60 20 138/79 100 12/25/17 06:38 12/25/17 06:38 12/25/17 06:38 12/25/17 06:38 12/25/17 06:38 General appearance: no acute distress HEENT: Positive: PERRL Neck: Positive: neck supple Cardiac: Positive: Reg Rate and Rhythm Lungs: Positive: Normal Exam Neuro: Positive: Grossly Intact Abdomen: Positive: Soft Extremities: Absent: edema Results 12/25/17 06:56 12/25/17 06:56 Cardiac Enzymes 12/25/17 Range/Units 06:56 AST 16 (5-40) units/L Coagulation 12/25/17 Range/Units 08:51 PT 12.8 (12.2-14.9) Sec. INR 0.91 (0.87-1.13) APTT 35.5 (24.2-36.6) Sec. CBC 12/25/17 Range/Units 06:56 WBC 5.0 (4.5-11.0) K/mm3 RBC 4.75 (3.65-5.03) M/mm3 Hgb 13.3 (10.1-14.3) gm/dl Hct 40.1 (30.3-42.9) % Plt Count 247 (140-440) K/mm3 Lymph # 1.8 (1.2-5.4) K/mm3 [place] # 0.5 (0.0-0.8) K/mm3 Eos # 0.2 (0.0-0.4) K/mm3 Baso # 0.0 (0.0-0.1) K/mm3 Comprehensive Metabolic Panel 12/25/17 12/25/17 Range/Units 06:56 06:56 Sodium 142 (137-145) mmol/L Potassium 3.9 (3.6-5.0) mmol/L Chloride 102.9 (98-107) mmol/L Carbon Dioxide 28 (22-30) mmol/L BUN 11 (7-17) mg/dL Creatinine 0.8 (0.7-1.2) mg/dL Glucose 168 H (65-100) mg/dL Calcium 9.0 (8.4-10.2) mg/dL Direct Bilirubin < 0.2 (0-0.2) mg/dL Indirect Bilirubin 0.1 mg/dL AST 16 (5-40) units/L ALT 13 (7-56) units/L Alkaline Phosphatase 163 H (35-129) units/L Total Protein 7.2 (6.3-8.2) g/dL Albumin 3.9 (3.9-5) g/dL - EKG Interpretation EKG: sinus rhythm EKG interpretations - Telemetry EKG Rhythm: Sinus Rhythm Assessment and Plan Malaise and chills Unsteady gait NAP on CT brain Chest tightness No ischemic ECG changes Negative cardiac enzymes CAD s/p PCI to LAD Cath 10/02/2014: patent mid LAD stent MPI 10/02/2016: Fixed basal anterior wall defect, no ischemia Echo this admission - LVEF 50-55% Recommendations: Patient's presentation is not consistent with ACS. Her main complaint is malaise and unsteady gait. In the absence of ECG changes or abnormal cardiac enzymes, no further cardiac work-up is needed Will continue to follow
--- NOTE | 2017-12-25 20:54 | Cat Scan Report ---
FINAL REPORT PROCEDURE: CT ANGIO CHEST TECHNIQUE: Computerized tomographic angiography of the chest was performed during the IV injection of iodinated nonionic contrast including image processing. The image data was postprocessed using 2-dimensional multiplanar reformatted (MPR) and 3-dimensional (MIP and/or volume rendered) techniques. HISTORY: chest pain. Evaluate pulmonary embolus. COMPARISON: No prior studies are available for comparison. FINDINGS: Pulmonary outflow tract, right and left main pulmonary arteries and their proximal branches: Clear, no filling defects seen to suggest pulmonary embolus. Pericardium: No evidence of pericardial effusion. Thoracic aorta: No evidence of aneurysmal dilatation or dissection. Coronary arteries: Are unremarkable. Mediastinum and hilar regions: Nonspecific subcentimeter lymph nodes are visualized. No pathologically enlarged lymph nodes or masses are identified. Lung [place]: Clear Upper abdomen: The gallbladder is surgically absent. There are small peripheral calcifications laterally inferiorly in the right lobe of the liver which could be related to previous trauma, prior infection or granulomatous change. Upper abdomen is otherwise unremarkable. Other: No acute bony abnormalities are identified. IMPRESSION: No evidence of pulmonary embolus. Prior cholecystectomy.
[2017-12-25] MEDS: SODIUM CHLORIDE FLUSH SYRINGE 10 ML IV SCH (21:11)
[2017-12-25] MEDS ORDERED: LOPRESSOR PO SCH (22:00)
[2017-12-25] MEDS ORDERED: NON-FORMULARY (Rosuvastatin Calcium [Crestor] 40 MG) PO SCH (22:00)
[2017-12-26] MEDS: MORPHINE IV PRN (04:37)
--- NOTE | 2017-12-26 09:33 | Progress Note ---
Assessment and Plan Malaise and chills Stomach and pelvic pain Sinus bradycardia on tele Unsteady gait NAP on CT brain Chest tightness No ischemic ECG changes Negative cardiac enzymes CAD s/p PCI to LAD Cath 10/02/2014: patent mid LAD stent MPI 10/02/2016: Fixed basal anterior wall defect, no ischemia Echo this admission - LVEF 50-55% Recommendations: Patient's presentation is not consistent with ACS. Her main complaint is malaise and unsteady gait. In the absence of ECG changes or abnormal cardiac enzymes, no further cardiac work-up is needed Discontinue metoprolol due to sinus bradycardia noted on tele Follow-up with [facility] as outpatient Subjective Date of service: 12/26/17 Principal diagnosis: Unsteady gait Interval history: Patient continues to have vague and non-specific symptoms. This morning she is complaining of stomach ache and pelvic pain. She did ask for morphine overnight for this pain. Tele is showing sinus bradycardia Objective Vital Signs Temp Pulse Resp BP Pulse Ox 12/26/17 08:18 98.2 F 62 20 132/68 97 12/26/17 04:32 98.5 F 63 20 129/68 97 12/25/17 23:53 98.3 F 65 20 108/63 97 12/25/17 23:18 63 12/25/17 21:15 20 12/25/17 21:12 63 134/58 12/25/17 21:11 18 12/25/17 20:21 98.3 F 63 20 134/58 97 12/25/17 20:12 98 12/25/17 16:30 20 12/25/17 16:00 20 12/25/17 15:18 57 L 12/25/17 14:01 157/76 99 12/25/17 13:31 151/68 99 12/25/17 13:21 143/60 99 12/25/17 10:31 15 137/65 99 12/25/17 10:01 13 137/65 100 12/25/17 09:31 11 L 137/65 100 - Physical Examination HEENT: Positive: PERRL Neck: Positive: neck supple Cardiac: Positive: Reg Rate and Rhythm Lungs: Positive: Normal Exam Neuro: Positive: Grossly Intact Abdomen: Positive: Soft Extremities: Absent: edema
[2017-12-26] MEDS ORDERED: ZESTRIL PO SCH (10:00)
[2017-12-26] MEDS ORDERED: HCTZ PO SCH (10:00)
[2017-12-26] MEDS ORDERED: celeXA PO SCH (10:00)
[2017-12-26] MEDS ORDERED: NON-FORMULARY (Esomeprazole Magnesium [Nexium] 40 MG) PO SCH (10:00)
[2017-12-26] MEDS ORDERED: PROTONIX PO SCH (10:00)
[2017-12-26] MEDS ORDERED: FLONASE NS SCH (10:00)
[2017-12-26] MEDS ORDERED: DESYREL PO SCH (10:00)
[2017-12-26] MEDS ORDERED: LANTUS SUB-Q SCH (10:00)
[2017-12-26] MEDS: SODIUM CHLORIDE FLUSH SYRINGE 10 ML IV SCH (10:18)
[2017-12-26] MEDS ORDERED: PNEUMOVAX 23 IM ONE (12:00)
[2017-12-26 16:13] VITALS: BP 135/66
--- NOTE | 2017-12-26 17:29 | Progress Note ---
Assessment and Plan Assessment and plan: History of present illness: 57 YO Female with HTN, DM, GERD, Obesity, CAD S/P Stent placement presents to ED for evaluation. Pt states that she has experienced generalized weakness over the past 1 week, with persistent symptoms over the same time frame. Pt also states that she has experienced pain in her chest over the past 1 day. Pt states that pain is substernal, 5/10, nonradiating, not worsened with exertion, or relieved with rest. Pt denies fever, chills, palpitations, productive cough, unintentional weight loss, night sweats, unilateral leg swelling, calf pain, or recent ill contacts. Pt seen and evaluated in ED and found to have ACS, as well symptoms consistent with Diastolic CHF. Pt admitted to telemetry. Cardiology consulted in ED. Past History Past Medical History: CAD, diabetes, GERD, hypertension (1) CHF (congestive heart failure) Current Visit: Yes Status: Acute Qualifiers: Heart failure type: diastolic Heart failure chronicity: acute Qualified Code(s): I50.31 - Acute diastolic (congestive) heart failure Plan to address problem: Admit to telemetry, cardiology consulted in ED, strict I/O, monitor uop q shift , echo, BNP, chest x ray, Ddimer, CTA chest (2) ACS (acute coronary syndrome) Current Visit: Yes Status: Acute Plan to address problem: Serial cardiac enzymes, ekg, telemetry, morphine, supplemental oxygen, nitro, aspirin, cardiology consulted in ED. (3) Diabetes Current Visit: Yes Status: Acute Plan to address problem: ADA diet, insulin, accu check (4) GERD (gastroesophageal reflux disease) Current Visit: Yes Status: Acute Qualifiers: Esophagitis presence: without esophagitis Qualified Code(s): K21.9 - Gastro -esophageal reflux disease without esophagitis Plan to address problem: PPI therapy, (5) DVT prophylaxis Current Visit: Yes Status: Acute Plan to address problem: SCD to BLE while in bed. History Interval history: Review of systems Constitutional: No fevers, no malaise, no joint pains CVS: No chest pain, no orthopnea, no dyspnea on exertion, no pedal edema GI: No abdominal pain, no diarrhea, no vomiting, no constipation Respiratory: No shortness of breath, no wheezing, no coughing Hospitalist Physical - Physical exam Narrative exam: General.: Appears well, no distress, nontoxic HEENT: Moist mucous membranes, extraocular muscles intact, no lymphadenopathy Neck: supple Cardiac: S1-S2 heard Lungs: clear to auscultation bilaterally Abdomen: soft , nontender, nondistended, bowel sounds positive Extremities: no edema clubbing or cyanosis Skin: no rash or lesions Neurologic: no gross focal deficits Psych: appropriate behavior, appropriate mood, corporative, judgment intact - Constitutional Vitals: Temp Pulse Resp BP Pulse Ox 98.0 F 59 L 20 135/66 96 12/26/17 16:12 12/26/17 16:12 12/26/17 16:12 12/26/17 16:12 12/26/17 16:12 General appearance: Present: no acute distress, well-nourished Results - Labs CBC & Chem 7: 12/25/17 06:56 12/25/17 06:56 Labs: Laboratory Last Values WBC 5.0 K/mm3 (4.5-11.0) 12/25/17 06:56 RBC 4.75 M/mm3 (3.65-5.03) 12/25/17 06:56 Hgb 13.3 gm/dl (10.1-14.3) 12/25/17 06:56 Hct 40.1 % (30.3-42.9) 12/25/17 06:56 MCV 84 fl (79-97) 12/25/17 06:56 MCH 28 pg (28-32) 12/25/17 06:56 MCHC 33 % (30-34) 12/25/17 06:56 RDW 14.0 % (13.2-15.2) 12/25/17 06:56 Plt Count 247 K/mm3 (140-440) 12/25/17 06:56 Lymph % (Auto) 37.2 % (13.4-35.0) H 12/25/17 06:56 Story % (Auto) 9.4 % (0.0-7.3) H 12/25/17 06:56 Eos % (Auto) 3.4 % (0.0-4.3) 12/25/17 06:56 Baso % (Auto) 0.4 % (0.0-1.8) 12/25/17 06:56 Lymph # 1.8 K/mm3 (1.2-5.4) 12/25/17 06:56 Story # 0.5 K/mm3 (0.0-0.8) 12/25/17 06:56 Eos # 0.2 K/mm3 (0.0-0.4) 12/25/17 06:56 Baso # 0.0 K/mm3 (0.0-0.1) 12/25/17 06:56 Seg Neutrophils % 49.6 % (40.0-70.0) 12/25/17 06:56 Seg Neutrophils # 2.5 K/mm3 (1.8-7.7) 12/25/17 06:56 PT 12.8 Sec. (12.2-14.9) 12/25/17 08:51 INR 0.91 (0.87-1.13) 12/25/17 08:51 APTT 35.5 Sec. (24.2-36.6) 12/25/17 08:51 D-Dimer 252.37 ng/mlDDU (0-234) H 12/25/17 12:45 Sodium 142 mmol/L (137-145) 12/25/17 06:56 Potassium 3.9 mmol/L (3.6-5.0) 12/25/17 06:56 Chloride 102.9 mmol/L (98-107) 12/25/17 06:56 Carbon Dioxide 28 mmol/L (22-30) 12/25/17 06:56 Anion Gap 15 mmol/L 12/25/17 06:56 BUN 11 mg/dL (7-17) 12/25/17 06:56 Creatinine 0.8 mg/dL (0.7-1.2) 12/25/17 06:56 Estimated GFR > 60 ml/min 12/25/17 06:56 BUN/Creatinine Ratio 14 % 12/25/17 06:56 Glucose 168 mg/dL (65-100) H 12/25/17 06:56 POC Glucose 226 (70-105) H 12/26/17 15:52 Calcium 9.0 mg/dL (8.4-10.2) 12/25/17 06:56 Total Bilirubin 0.30 mg/dL (0.1-1.2) 12/25/17 06:56 Direct Bilirubin < 0.2 mg/dL (0-0.2) 12/25/17 06:56 Indirect Bilirubin 0.1 mg/dL 12/25/17 06:56 AST 16 units/L (5-40) 12/25/17 06:56 ALT 13 units/L (7-56) 12/25/17 06:56 Alkaline Phosphatase 163 units/L (35-129) H 12/25/17 06:56 Total Creatine Kinase 89 units/L (30-135) 12/25/17 06:56 Troponin T < 0.010 ng/mL (0.00-0.029) 12/25/17 18:55 NT-Pro-B Natriuret Pep 49.11 pg/mL (0-900) 12/25/17 06:56 Total Protein 7.2 g/dL (6.3-8.2) 12/25/17 06:56 Albumin 3.9 g/dL (3.9-5) 12/25/17 06:56 Albumin/Globulin Ratio 1.2 % 12/25/17 06:56 TSH 6.760 mlU/mL (0.270-4.200) H 12/25/17 13:09 Free T4 1.10 ng/dL (0.76-1.46) 12/25/17 13:09 Urine Color Yellow (Yellow) 12/25/17 Unknown Urine Turbidity Slightly-cloudy (Clear) 12/25/17 Unknown Urine pH 7.0 (5.0-7.0) 12/25/17 Unknown Ur Specific [place] 1.023 (1.003-1.030) 12/25/17 Unknown Urine Protein <15 mg/dl mg/dL (Negative) 12/25/17 Unknown Urine Glucose (UA) Neg mg/dL (Negative) 12/25/17 Unknown Urine Ketones Neg mg/dL (Negative) 12/25/17 Unknown Urine Blood Neg (Negative) 12/25/17 Unknown Urine Nitrite Neg (Negative) 12/25/17 Unknown Urine Bilirubin Neg (Negative) 12/25/17 Unknown Urine Urobilinogen 4.0 mg/dL (<2.0) 12/25/17 Unknown Ur Leukocyte Esterase Tr (Negative) 12/25/17 Unknown Urine WBC (Auto) 2.0 /HPF (0.0-6.0) 12/25/17 Unknown Urine RBC (Auto) 1.0 /HPF (0.0-6.0) 12/25/17 Unknown U Epithel Cells (Auto) 9.0 /HPF (0-13.0) 12/25/17 Unknown Urine Bacteria (Auto) 1+ /HPF (Negative) 12/25/17 Unknown Urine Mucus Few /HPF 12/25/17 Unknown
[2017-12-26] MEDS ORDERED: HumaLOG SUB-Q SCH (17:30)
[2017-12-26] MEDS ORDERED: D50W (25GM) Syringe IV PRN (17:34)
--- NOTE | 2017-12-26 17:34 | Discharge Summary ---
Providers - Providers Date of Admission: 12/25/17 13:02 Attending physician: ELLIOT PANTOJA MD 12/25/17 Consult to Cardiac Rehabilitation [CONS] Routine Reason For Exam: Phase I 12/25/17 13:02 Consult to Cardiology [CONS] Routine Consulting Provider: GARY WHITE Reason For Exam: acs Primary care physician: SUMAC TANNER Hospitalization Condition: Stable Hospital course: History of present illness: 57 YO Female with HTN, DM, GERD, Obesity, CAD S/P Stent placement presents to ED for evaluation. Pt states that she has experienced generalized weakness over the past 1 week, with persistent symptoms over the same time frame. Pt also states that she has experienced pain in her chest over the past 1 day. Pt states that pain is substernal, 5/10, nonradiating, not worsened with exertion, or relieved with rest. Pt denies fever, chills, palpitations, productive cough, unintentional weight loss, night sweats, unilateral leg swelling, calf pain, or recent ill contacts. Pt seen and evaluated in ED and found to have ACS, as well symptoms consistent with Diastolic CHF. Pt admitted to telemetry. Cardiology consulted in ED. Past History Past Medical History: CAD, diabetes, GERD, hypertension (1) CHF (congestive heart failure) Current Visit: Yes Status: Acute Qualifiers: Heart failure type: diastolic Heart failure chronicity: acute Qualified Code(s): I50.31 - Acute diastolic (congestive) heart failure Plan to address problem: Admit to telemetry, cardiology consulted in ED, strict I/O, monitor uop q shift , echo, BNP, chest x ray, Ddimer, CTA chest (2) ACS (acute coronary syndrome) Current Visit: Yes Status: Acute Plan to address problem: Serial cardiac enzymes, ekg, telemetry, morphine, supplemental oxygen, nitro, aspirin, cardiology consulted in ED. (3) Diabetes Current Visit: Yes Status: Acute Plan to address problem: ADA diet, insulin, accu check (4) GERD (gastroesophageal reflux disease) Current Visit: Yes Status: Acute Qualifiers: Esophagitis presence: without esophagitis Qualified Code(s): K21.9 - Gastro -esophageal reflux disease without esophagitis Plan to address problem: PPI therapy, (5) DVT prophylaxis Current Visit: Yes Status: Acute Plan to address problem: SCD to BLE while in bed. Disposition: DC-01 TO HOME OR SELFCARE Time spent for discharge: 33 minutes Core Measure Documentation - Palliative Care Palliative Care/ Comfort Measures: Not Applicable - Core Measures Any of the following diagnoses?: none Exam - Constitutional Vitals: Temp Pulse Resp BP Pulse Ox 98.0 F 59 L 20 135/66 96 12/26/17 16:12 12/26/17 16:12 12/26/17 16:12 12/26/17 16:12 12/26/17 16:12 General appearance: Present: no acute distress, well-nourished - EENT Eyes: Present: PERRL ENT: hearing intact, clear oral mucosa - Neck Neck: Present: supple, normal ROM - Respiratory Respiratory effort: normal Respiratory: bilateral: CTA - Cardiovascular Heart Sounds: Present: S1 & S2. Absent: rub, click - Extremities Extremities: pulses symmetrical, No edema Peripheral Pulses: within normal limits - Abdominal General gastrointestinal: Present: soft, non-tender, non-distended, normal bowel sounds Female genitourinary: Present: normal - Integumentary Integumentary: Present: clear, warm, dry - Musculoskeletal Musculoskeletal: gait normal, strength equal bilaterally - Psychiatric Psychiatric: appropriate mood/affect, intact judgment & insight - Neurologic Neurologic: CNII-XII intact, moves all extremities Plan Follow up with: PRIMARY CARE, [Primary Care Provider] - 3-5 Days
== END 2017-12-26 21:04 | disposition home or self-care (01) | DRG 292 ==
LOC: ED 06:23 → 4A 13:02
PROVIDERS: ADMIT Internal Medicine; ATTEND Internal Medicine
PROC: 3E0234Z Introduction of Serum, Toxoid and Vaccine into Muscle, Percutaneous Approach (ICD-10-PCS; principal; 2017-12-26)
DX: I11.0 Hypertensive heart disease with heart failure (principal); I24.9 Acute ischemic heart disease, unspecified; E11.9 Type 2 diabetes mellitus without complications; I50.31 Acute diastolic (congestive) heart failure; K21.9 Gastro-esophageal reflux disease without esophagitis; I25.10 Atherosclerotic heart disease of native coronary artery without angina pectoris; Z95.5 Presence of coronary angioplasty implant and graft; Z82.49 Family history of ischemic heart disease and other diseases of the circulatory system; Z83.3 Family history of diabetes mellitus; Z90.49 Acquired absence of other specified parts of digestive tract; Z79.82 Long term (current) use of aspirin; Z79.4 Long term (current) use of insulin; Z79.899 Other long term (current) drug therapy; Z23 Encounter for immunization
CPT/HCPCS: 36415; 70450; 70551; 71045; 71275; 80048; 80074; 81001; 82550; 82962; 83880; 84439; 84443; 84484; 85025; 85379; 85610; 85730; 87086; 90732; 93005; 93010; 93306; A9270-GY; J1815; J2270; Q9967